=== PATIENT | male | born 1970 | race Caucasian/White ===

== ENCOUNTER → 2017-12-03 | Outpatient (CLI) | payer OTHER ==
[~2017-12-03] MED LIST: BACL10TA PO; CITA40TA12 PO; CYM/30 PO; DIAZ-165 PO; HYDR-4079 PO; HYDR50CA2 PO; MAGNESIUM PO; OXYC-106 PO; PROP20TA67 PO; VERA120T15 PO
[2017-12-03 13:56] LABS: BASO % 0.9 %; BASO ABS # 0.09 K/uL (0-0.2); EOS % 3.1 %; HEMATOCRIT 46.8 % (42-52); HEMOGLOBIN 16.4 g/dL (14.0-18.0); IG# 0.04 K/uL (0.00-0.02); LYMPH % 27.3 %; LYMPH ABS # 2.62 K/uL (1.2-3.4); MEAN CORPUSCULAR HEMOGLOBIN 30.1 pg (25-34); MEAN PLATELET VOLUME 10.1 fL (7.4-10.4); MONO ABS # 0.86 K/uL (0.11-0.59); NEUT % 59.3 %; NEUT ABS # 5.68 K/uL (1.4-6.5); PLATELET COUNT 341 K/uL (130-400); RED CELL DISTRIBUTION WIDTH CV 12.9 % (11.5-14.5); RED CELL DISTRIBUTION WIDTH SD 40.8 fL (36.4-46.3); WHITE BLOOD COUNT 9.59 K/uL (4.8-10.8)
== END | disposition home or self-care (01) ==
LOC: C.LABBC 11:48
PROVIDERS: ATTEND Orthopaedic Surgery Orthopaedic Surgery of the Spine
DX: Z01.812 Encounter for preprocedural laboratory examination (principal)

== ENCOUNTER 2017-12-15 05:23 | Observation (INO) | payer BC, OTHER ==
[2017-12-05 11:38] VITALS: BMI 32.0
--- NOTE | 2017-12-12 13:38 | HISTORY & PHYSICAL EXAMINATION ---
DATE OF ADMISSION: 12/15/2017 CHIEF COMPLAINT: Neck pain, arm pain, headaches, paresthesias, numbness and tingling. HISTORY OF PRESENT ILLNESS: He is 47 years of age and has ongoing problems for several months in duration and worsening over time. He had ____ surgery that was successful back in May, he underwent repair. He has gone on and done fairly well. More recently, he returned to heavy lifting, bending, stooping. I think he may have overdone things, just an estimate and possibly exceeding his lifting recommendations and may have reinjured his cervical spine. He also has degenerative changes at C3-C4 levels, C5-C6 and possibly even nonunion at the 4-5 level of the cervical spine. PAST MEDICAL HISTORY: Neck problems, upper back problems, hypertension, anxiety. PAST SURGICAL HISTORY: Shoulder surgery x2, C-spine surgery, appendectomy, AC separation. ALLERGIES: Negative. MEDICATIONS: Propranolol, Percocet, Cymbalta, and diazepam, citalopram. SOCIAL HISTORY: Nonsmoker, non ETOH user. ALLERGIES: Negative. Denies any blurred vision, double vision. Does have tenderness. Does have headaches. Does have some eye pain. Denies chest pain, angina. Denies asthma, wheezing, shortness of breath. No nausea, vomiting, urgency, frequency, dysuria. Mostly neck pain, arm pain, musculoskeletal arm difficulties, paresthesias, numbness, tingling. PHYSICAL EXAMINATION: GENERAL: He is alert, oriented. He is 6 foot. He is 200 pounds. VITAL SIGNS: Blood pressure 130/80, pulse of 80, respiration rate 16. HEAD, EYES, EARS, NOSE, AND THROAT: Pupils react to light and accommodation. Ear, nose and throat clear. CARDIAC: Normal S1, S2, no S3. LUNGS: Clear. ABDOMEN: Soft, nontender. NEUROLOGIC: He has a positive Spurling maneuver with rotate and side bending. He has Lhermitte sign with signs of cord compression. He has numbness and tingling. He has weakness of operator, weakness of the biceps function. 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 DISPOSITION: Includes an anterior cervical discectomy and fusion, C3-C4 and C5-C6 cervical spine, revision C4-5 cervical spine with iliac crest bone graft.
[2017-12-15] VITALS (14 sets, daily range): BP systolic 142–171; BP diastolic 89–119; PULSE 67–96; TEMP 36.4–36.8; O2SAT 95–98; Ht 180.3 cm; Wt 104.1 kg
[~2017-12-15] VITALS: Ht 180.3 cm; Wt 104.1 kg
[~2017-12-15 05:23] MED LIST changes: -BACL10TA PO; -HYDR-4079 PO; -VERA120T15 PO
[2017-12-15] MEDS ORDERED: LACTATED RINGER'S 1000ML 1,000 ML IV SCH (06:00)
[2017-12-15] MEDS ORDERED: NSS 1000ML IV SCH (06:00)
[2017-12-15] MEDS ORDERED: CEFAZOLIN 2000MG IV PUSH 10 ML IV SCH (06:00)
[2017-12-15] MEDS ORDERED: THROMBIN FOR SOLN 20000 UNIT KIT ONE (06:54)
[2017-12-15] MEDS ORDERED: GELATIN SPONGE SZ 100 ONE (06:54)
[2017-12-15] MEDS ORDERED: BUPIVACAINE/EPINEPHRINE 0.5% MPF 1:200,000 30 ML VIAL ONE ×2 (06:55→10:59)
[2017-12-15] MEDS ORDERED: BACITRACIN 50000 UNIT VIAL ONE (06:55)
[2017-12-15] MEDS ORDERED: MIDAZOLAM HCL 1 MG/ML 2ML VIAL ONE (07:10)
[2017-12-15] MEDS ORDERED: FENTANYL CITRATE INJ 50 MCG/1 ML 2 ML VIAL ONE ×2 (07:10→08:10)
[2017-12-15] MEDS ORDERED: ONDANSETRON INJ 2 MG/ML 2 ML VIAL IV PRN ×2 (07:15→11:15)
[2017-12-15] MEDS ORDERED: LABETALOL HCL IV 5 MG/ML 20ML IV PRN (07:15)
[2017-12-15] MEDS ORDERED: PROMETHAZINE HCL INJ 12.5 MG in SODIUM CHLORIDE 0.9% 50ML 50 ML IV PRN (07:15)
[2017-12-15] MEDS ORDERED: PHENYLEPHRINE 100MCG/ML 5ML SYR IV PRN (07:15)
[2017-12-15] MEDS ORDERED: ATROPINE SULFATE 0.1 MG/ML 5ML SYR IV PRN (07:15)
[2017-12-15] MEDS ORDERED: EpHEDrine SULFATE INJ 50 MG/ML AMP IV PRN (07:15)
--- NOTE | 2017-12-15 07:23 | History & Physical Bridge Note ---
H&P Re-Evaluation Bridge Note: I have examined the patient, reviewed the History & Physical and in the interval since the performance of the History & Physical I have noted the following changes of clinical significance: No changes noted
[2017-12-15] MEDS ORDERED: ACETAMINOPHEN 1000 MG/100 ML IV IV SCH (07:30)
[2017-12-15] MEDS ORDERED: HYDROmorphone INJ 2 MG/ML SYR/VIAL ONE (08:21)
[2017-12-15] MEDS ORDERED: NEOSTIGMINE METHYLSULFATE 5 MG/5 ML SYR ONE (08:24)
[2017-12-15] MEDS ORDERED: GLYCOPYRROLATE INJ 0.2 MG/ML VIAL ONE (08:24)
[2017-12-15] MEDS ORDERED: KETOROLAC TROMETHAMINE 30 MG/ML VIAL ONE (08:24)
[2017-12-15] MEDS ORDERED: DEXAMETHASONE SOD INJ 4 MG/ML VIAL ONE (08:24)
[2017-12-15] MEDS ORDERED: LABETALOL HCL IV 5 MG/ML 20ML IV ONE (08:24)
[2017-12-15] MEDS ORDERED: PROPOFOL IV EMULSION 10 MG/ML 20 ML VIAL IV ONE (08:24)
[2017-12-15] MEDS ORDERED: LIDOCAINE HCL 2% 2 ML VIAL (20MG/ML) ONE (08:24)
[2017-12-15] MEDS ORDERED: ROCURONIUM BROMIDE 10 MG/ML 5 ML VIAL IV ONE ×2 (08:24→12:40)
[2017-12-15] MEDS ORDERED: ONDANSETRON INJ 2 MG/ML 2 ML VIAL ONE (08:24)
[2017-12-15] MEDS ORDERED: LARYING-O-JET KIT (LTA) ONE (08:24)
[2017-12-15] MEDS ORDERED: HydrALAZINE HCL 20 MG/ML VIAL ONE (08:30)
--- NOTE | 2017-12-15 10:57 | DIAGNOSTIC IMAGING REPORT ---
INTRAOPERATIVE RADIOGRAPH CLINICAL HISTORY: Cervical spinal fusion. Fluoroscopy time: 5 seconds. FINDINGS: A single spot fluoroscopic image of the cervical spine is presented. There is evidence of discectomy at C3-C4 with anterior fusion at this level. Multilevel spinal fusion is seen in the lower cervical region. This extends from at least C4-C6. IMPRESSION: Intraoperative image from a cervical spinal fusion procedure as above. See operative report for detailed findings. Electronically signed by: Kush Pereyra M.D. 12/15/2017 10:56 AM Dictated Date/Time: 12/15/2017 10:55 AM
[2017-12-15] MEDS: SODIUM CHLORIDE 0.9% 1000ML 1,000 ML IV SCH ×2 (11:13→23:27)
[2017-12-15] MEDS ORDERED: DEXAMETHASONE INJ 8 MG in SYRINGE 0 ML IV PRN (11:15)
[2017-12-15] MEDS ORDERED: NALOXONE HCL 0.4 MG/1 ML VIAL/CARP IV PRN (11:15)
[2017-12-15] MEDS ORDERED: MAGNESIUM HYDROXIDE SUSP 30 ML UDC PO PRN (11:15)
[2017-12-15] MEDS ORDERED: ACETAMINOPHEN IV 1,000 MG in EMPTY BAG 0 ML IV PRN (11:15)
[2017-12-15] MEDS ORDERED: LORAZEPAM INJ 0.5 MG in SYRINGE 0.75 ML IV PRN (11:15)
[2017-12-15] MEDS ORDERED: RACEPINEPHRINE 2.25% NEBU SOLN 0.5 ML VIAL INH PRN (11:15)
[2017-12-15] MEDS ORDERED: LORAZEPAM 0.5 MG TAB PO PRN (11:15)
--- NOTE | 2017-12-15 11:15 | [facility] Post Operative Brief Note ---
Immediate Operative Summary Operative Date Dec 15, 2017. Pre-Operative Diagnosis Degenerative changes C3-C4 and C5-C6, Previous Fusion C4-C5 Post-Operative Diagnosis Degenerative changes C3-C4 and C5-C6, Previous Fusion C4-C5 Procedure(s) Performed Anterior Cervical Discectomy and Fusion C3-C4, C5-C6, Revision C4-C5 with Right Iliac Crest Bone Graft Surgeon Dr. Saha Php Architect Surgeon(s) EDIE Eng Estimated Blood Loss 50 ml Findings Consistent with Post-Op Diagnosis Specimens A. Removed Hardware C4-C5 Drains None Anesthesia Type General Disposition Disposition: Recovery Room / PACU
[2017-12-15] MEDS: FENTANYL CITRATE INJ 50 MCG/1 ML 2 ML VIAL IV PRN ×4 (11:18→11:34)
[2017-12-15] MEDS: HYDROmorphone INJ 1 MG/ML SYR IV PRN ×4 (11:38→11:55)
--- NOTE | 2017-12-15 12:14 | OPERATIVE REPORT ---
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 POSTOPERATIVE DIAGNOSIS: Same. PROCEDURES: Include: 1. Anterior cervical discectomy and fusion C3-C4 and C5-C6 cervical spine. 2. Anterior cervical discectomy and decompression of a nonunion at C4-C5 cervical spine. 3. Anterior plating of C4-C5-C6 cervical spine. 4. Right iliac crest bone graft. SURGEON: Dr. Saha. CREATIVE WRITING ENGLISH PROFESSOR: Juliano Londono PA-C. DESCRIPTION OF PROCEDURE: The patient was taken to the operating room and general intubated anesthetic provided to the patient. Antibiotics delivered. Solitario catheter administered. He was shaved, scrubbed, prepped and draped sterile. We made a left anterior approach similar to his prior surgery dissecting the soft tissue on the same plane down on the anterior aspect of the spinal vertebral column. We meticulously exposed the area of C3 down to C6 of the cervical spine region. We then did formal discectomies at the C5-C6 region, the C3-C4 region. We got back to the spinal canal, we decompressed every particle of disk that I could see. Revision was good. We then did a revision at the C4-C5 level of the cervical spine, decompression of the nerve roots, taking out bone, using a amanda, I got back through the osteophyte, I got through the posterior longitudinal ligament and every area was decompressed appropriately in my opinion. We then went to the right iliac crest. I did a skin incision, fascial incision, we were able to harvest iliac crest bone graft. I felt the lowest 2 levels, I did iliac crest bone with an anterior plate. Up at the higher level, we did a coalition device at C3-C4 region of the cervical spine. I was pleased with the result fixation positioning. We irrigated and closed in layers on the iliac crest with #1 Vicryl suture, 2-0 in the subcuticular layer, and 3-0 nylon on the skin. The cervical spine was closed in sequential manner as well. Sterile dressings applied. Cervical collar applied. The patient extubated to PACU stable. Sponge and needle count correct. COMPLICATIONS: No apparent complications. BLOOD LOSS: 50 mL. I attest to the content of the Intraoperative Record and any orders documented therein. Any exception s are noted below.
--- NOTE | 2017-12-15 12:37 | Anesthesiology Progress Note ---
Anesthesia Post Op Note Date & Time Dec 15, 2017 at 12:37 Vital Signs Pain Intensity: 0 Vital Signs Past 12 Hours Date Time Temp Pulse Resp B/P (MAP) Pulse Ox O2 Delivery O2 Flow Rate FiO2 12/15/17 12:25 36.6 94 22 141/83 92 Room Air 12/15/17 12:15 96 22 141/83 95 Room Air 12/15/17 12:05 96 14 127/74 96 Room Air 12/15/17 11:55 85 13 145/89 96 Nasal Cannula 4 12/15/17 11:45 89 18 97 12/15/17 11:45 89 18 12/15/17 11:41 149/87 12/15/17 11:40 87 12 96 12/15/17 11:40 87 12 12/15/17 11:36 148/93 12/15/17 11:35 93 21 12/15/17 11:35 93 21 95 12/15/17 11:33 149/94 12/15/17 11:31 139/125 12/15/17 11:30 94 27 96 12/15/17 11:30 92 27 12/15/17 11:26 154/84 12/15/17 11:25 90 27 12/15/17 11:25 89 27 98 12/15/17 11:21 147/100 12/15/17 11:20 85 20 12/15/17 11:20 85 20 97 12/15/17 11:15 96 18 12/15/17 11:15 36.4 94 16 145/90 94 Oxymask 10 12/15/17 11:15 97 18 145/90 96 12/15/17 05:42 36.7 67 20 171/109 (129) 98 Room Air Notes Mental Status: alert / awake / arousable, participated in evaluation Pt Amnestic to Procedure: Yes Nausea / Vomiting: adequately controlled Pain: adequately controlled Airway Patency, RR, SpO2: stable & adequate BP & HR: stable & adequate Hydration State: stable & adequate Anesthetic Complications: no major complications apparent
[2017-12-15] MEDS ORDERED: ACETAMINOPHEN IV 1000MG/100ML IV PRN (13:45)
[2017-12-15] MEDS: HYDROmorphone INJ 0.5 MG/0.5 ML SYR IV PRN ×4 (13:46→23:27)
[2017-12-15] MEDS: PROPRANOLOL HCL 20 MG TAB PO SCH ×2 (14:00→20:18)
[2017-12-15] MEDS ORDERED: IV FLUIDS COMPLETED PRN (15:45)
[2017-12-15] MEDS ORDERED: NURSING VERBAL MED ORDER ONE (15:45)
[2017-12-15] MEDS: OXYCODONE/ACETAMINOPHEN 10/325MG TAB PO PRN ×2 (16:21→22:33)
[2017-12-15] MEDS: CEFAZOLIN IV 1,000 MG in SYRINGE 0 ML IV SCH ×2 (16:32→23:24)
[2017-12-15] MEDS: DEXAMETHASONE INJ 6 MG in SYRINGE 0 ML IV SCH ×2 (16:32→23:25)
[2017-12-15] MEDS: MAGNESIUM OXIDE 400 MG TAB PO SCH (20:18)
[2017-12-15] MEDS: DOCUSATE SODIUM 100 MG CAP PO SCH (20:19)
[2017-12-15] MEDS: hydrOXYzine HCL 25 MG TAB PO SCH (20:20)
[2017-12-16] VITALS (19 sets, daily range): BP systolic 143–193; BP diastolic 84–111; PULSE 64–94; TEMP 36.6–37; O2SAT 93–98
[2017-12-16] MEDS: HYDROmorphone INJ 0.5 MG/0.5 ML SYR IV PRN ×6 (03:11→22:20)
[2017-12-16] MEDS: OXYCODONE/ACETAMINOPHEN 10/325MG TAB PO PRN ×3 (05:29→20:11)
--- NOTE | 2017-12-16 07:39 | Anesthesiology Progress Note ---
Anesthesia Post Op Note Date & Time Dec 16, 2017 at 07:39 Vital Signs Pain Intensity: 6.0 Vital Signs Past 12 Hours Date Time Temp Pulse Resp B/P (MAP) Pulse Ox O2 Delivery O2 Flow Rate FiO2 12/16/17 07:21 16 95 Room Air 12/16/17 03:29 94 18 97 Nasal Cannula 2.0 12/16/17 03:15 36.7 90 18 161/93 (115) 96 Nasal Cannula 2.0 12/16/17 01:15 36.7 91 18 143/84 (103) 96 Nasal Cannula 2.0 12/15/17 23:15 36.5 92 20 151/90 97 Nasal Cannula 2.0 Humidified Oxygen 12/15/17 23:09 83 18 96 Nasal Cannula 2.0 12/15/17 21:15 36.5 91 18 159/94 97 Nasal Cannula 2.0 Humidified Oxygen 12/15/17 20:34 85 18 96 Nasal Cannula 2.0 12/15/17 20:17 83 165/112 (129) Notes Mental Status: alert / awake / arousable, participated in evaluation Pt Amnestic to Procedure: Yes Nausea / Vomiting: adequately controlled Pain: adequately controlled Airway Patency, RR, SpO2: stable & adequate BP & HR: stable & adequate Hydration State: stable & adequate Anesthetic Complications: no major complications apparent
[2017-12-16] MEDS: DEXAMETHASONE INJ 6 MG in SYRINGE 0 ML IV SCH (08:10)
[2017-12-16] MEDS: CEFAZOLIN IV 1,000 MG in SYRINGE 0 ML IV SCH (08:16)
--- NOTE | 2017-12-16 09:00 | ORTHOPEDICS PROGRESS NOTE ---
DATE: 12/16/2017 SUBJECTIVE: He is alert, oriented, no chest pain, shortness of breath, confusion. OBJECTIVE: Vital signs stable. Alert, oriented. ASSESSMENT: Status post reconstructive cervical spine surgery, multiple levels, iliac crest bone graft. DISPOSITION: He is doing appropriately in the short run. It is too early for him to be discharged home. He was given instruction precautions. Will round on him tomorrow, hopefully tentative discharge home tomorrow the .
[2017-12-16] MEDS: DOCUSATE SODIUM 100 MG CAP PO SCH ×2 (09:40→21:21)
[2017-12-16] MEDS: PROPRANOLOL HCL 20 MG TAB PO SCH ×3 (09:40→21:21)
[2017-12-16] MEDS: MAGNESIUM OXIDE 400 MG TAB PO SCH ×2 (09:40→21:20)
[2017-12-16] MEDS: DULOXETINE (CYMBALTA) 30 MG CAP PO SCH (09:40)
[2017-12-16] MEDS ORDERED: OXYC-106 PO (10:24)
--- NOTE | 2017-12-16 10:25 | Discharge Instructions ---
Discharge Instructions Date of Service Dec 16, 2017. Admission Reason for Admission: Cord Compression, Nonunion Discharge Discharge Diagnosis / Problem: same Discharge Goals Goal(s): Improve function Activity Recommendations Activity Limitations: as noted below Lifting Limitations: gradually increase as tolerated Exercise/Sports Limitations: until after follow-up appointment May Resume Sexual Activity: after follow-up appointment Shower/Bathe: keep incision dry . Instructions / Follow-Up Instructions / Follow-Up MEDICATIONS: Please take your prescriptions as instructed at your pre-op appointment. SPECIAL CARE: The following information is intended to answer some of the common questions and concerns regarding your surgery. Each patient is an individual and receives individual counselling throughout the course of treatment, from diagnosis to surgery all the way through recovery. What follows is not an exhaustive list, but should be a useful guide to some of the common questions and concerns patients have regarding their surgeries. These are not provided to keep you from calling us; rather, they give you something accurate and concrete to reference as you recover from your procedure. If you need us, we are available to you. As always, if you are not sure about something, call us at [phone]. MEDICAL EMERGENCIES: For these conditions, call 911 or go to your local hospital-based Emergency Department - not [facility] or equivalent. * Paralysis * Severe chest pain or difficulty breathing * Swelling or redness of either leg Spine procedures can be rather complex and though complications are rare, they do occur. In such cases, effective advice regarding emergency situations cannot always be addressed over the telephone. You may be referred to the emergency department for more effective management of your problem. Activity Limitations: It is important to give your body time to heal, so please limit your activities : * In general, don't do anything that moves your spine too much. You should avoid contact sports, twisting or heavy lifting while you recover. * 5-10 pounds is all you should attempt to lift. * You should not plan on driving for approximately 3 weeks and you should avoid traveling more than 30-45 minutes at a time. Longer trips should be broken down with walking breaks spaced appropriately. * Physical therapy is not usually required. * Walking and good posture practices will help you recover and regain your function. * Avoid straining or sudden changes in position. * In general, the goal is to take it easy and recover. Don't cause any new problems. Just relax. Showers: * Do not take a bath, use a Jacuzzi or hot tub or otherwise submerge your incision. * It is usually safe to take a shower 4-5 days after your surgery. * Your incision does not require any special creams or ointments. * Simply clean it with soap and water, dry and re-dress with a clean bandage afterwards. Incision: * Keep incision clean, dry and protected until your first follow-up appointment. * Some amount of drainage and redness is normal. Any drainage should be fairly clear and not have a foul odor. * If you feel anything is wrong or you have excessive drainage, please call us. * Your stitches and osmin will be removed 10-14 days after your surgery. At the time of your first post-op visit. * Neck surgeries are typically closed with a suture underneath the skin. The steri-strips over the incision should be maintained until we see you in the office. Bracing: * You may be provided with a back or neck brace to encourage good posture and prevent injury. It will remind you not to do too much as you heal and will alert others to the fact that you have had a surgery. * Back braces may be removed for showers and when you are resting at home. They must be worn when you are walking around for any period of time or for travel. * For neck surgery, you will likely be provided with two cervical collars. The soft collar (Prospect or foam rubber) is worn most commonly throughout the day and while sleeping. The plastic collar (provided at the hospital) is for showering/bathing. * Except while eating, collars should remain in place. More specifically, bracing is provided for a purpose and should be worn. * Please obtain your brace or collars prior to your operation and bring them to the hospital with you on the day of surgery. * You should also bring your collars to your post-op appointment with Dr. Saha. You should always take good care of your body and practice healthy habits, especially following surgery. You should: * Follow your doctor's treatment plan * Sit and stand properly with good posture (ears over shoulders, shoulders over hips) Don't slouch * Learn to lift correctly * Exercise regularly (low-impact aerobic exercise is especially good, but check with your doctor first) * Generally, be up and walking for 5-10 minutes at a time at least 3-4 times per day from the day you get home * Increasing walking to tolerance until you can walk for 20-30 minutes at a time * Attain and maintain a healthy body weight * Eat healthy foods ( a well-balanced, low-fat diet rich in fruits and vegetables) and get enough calcium * Avoid excessive use of alcohol When to call our office - If you notice any of the following: * Increased pain not relieve by pain medicine * Fevers greater then 100 degrees F, chills or flu symptoms * Increased redness around incision * Drainage from the incision that is not clear * Any foul smelling drainage * Swelling or fluid collection beneath the skin Miscellaneous: * In the hospital, you may be given a walker or cane for support while walking. These are temporary needs and are intended to prevent injuries due to falls. You may discontinue them when you feel strong and steady enough on your feet. * Sleep in a comfortable position. We find that many patients find a lounge chair or recliner with several pillows to be beneficial in the early post-operative period. * The support stockings should be used for 7-10 days and may be discontinued when you are back to walking more and conducting usual household activities. No problem is insignificant. We are here to help you and get you well. Contact us at [phone]. Definitions: Foraminotomy: If part of the disc or a bone spur (osteophyte) is pressing on a nerve as it leaves the vertebra (through an exit called the foramen), a foraminotomy may be done. Otomy means "to make an opening." A foraminotomy is making the opening of the foramen larger, so the nerve can exit without being compressed. Laminotomy: Similar to the foraminotomy, a laminotomy makes a larger opening, this time in your bony plate protecting your spinal canal and spinal cord (the lamina). The lamina may be pressing on your nerve, so the surgeon may make more room for the nerves using a laminotomy. Laminectomy: Sometimes, a laminotomy is not sufficient. The surgeon may need to remove all or part of the lamina. This procedure is called a laminectomy. This can often be done at many levels without any harmful effects. Current Hospital Diet Patient's current hospital diet: Clear Liquid Diet Discharge Diet Recommended Diet: Regular Diet Procedures Procedures Performed: Anterior Cervical Discectomy and Fusion C3-C4, C5-C6, Revision C4-C5 with Right Iliac Crest Bone Graft Pending Studies Studies pending at discharge: no Medical Emergencies . Who to Call and When: Medical Emergencies: If at any time you feel your situation is an emergency, please call 911 immediately. . Non-Emergent Contact Non-Emergency issues call your: Primary Care Provider . "Provider Documentation" section prepared by Mayo Saha. . VTE Core Measure Inpt VTE Proph given/why not?: Treatment not indicated
[2017-12-16] MEDS: hydrOXYzine HCL 25 MG TAB PO SCH (21:21)
[2017-12-17] VITALS: BP 193/111
[2017-12-17] MEDS ORDERED: HydrALAZINE HCL 20 MG/ML VIAL IV. PRN (00:45)
[2017-12-17 02:14] VITALS: BP 162/95
[2017-12-17] MEDS: OXYCODONE/ACETAMINOPHEN 10/325MG TAB PO PRN ×3 (03:08→08:58)
[2017-12-17 03:39] VITALS: PULSE 83; O2SAT 96
[2017-12-17 03:55] VITALS: BP 155/93; PULSE 63; TEMP 36.7; O2SAT 93
--- NOTE | 2017-12-17 04:19 | Medical Consult ---
Consultation Date of Consultation: Dec 17, 2017. Attending Physician: Mayo Saha DO Reason for Consultation: htn History of Present Illness This is a 47 yo m s/p c4-c5 fusion revision and ant cervical discectomy and fusion of c3-c4 POD2 that is suffering from elevated bp. The patient does have a history of HTN and is taking propranolol for this. He has had relatively well controlled bp considering his recent surgery and pain control however he had persistently elevated systolic bp > 190 overnight and consult for hospitalist was ordered. EKG was obtained and no ischemic changes were noted and patient NSR ; the quality was poor due to the patient's tremor. The patient received hydralazine 10 mg IV which improved the pressure. Patient was completely symptomatic with his elevated bp. Past Medical/Surgical History HTN Mood disorder Family History FH: CAD (coronary artery disease) Social History Smoking Status: Never Smoker Smokeless Tobacco Use: No Alcohol Use: socially Drug Use: none Occupation Status: employed Allergies Coded Allergies: No Known Allergies (Unverified , 12/15/17) Current Inpatient Medications Current Inpatient Medications Medications (Trade) Dose Ordered Sig/Arpita Route Start Time Stop Time Status Last Admin Dose Admin Racepinephrine (Raccemic Epinephrine 2.25% 0.5ML Neb) 0.5 ml ONE PRN INH 12/15/17 11:15 Hydromorphone HCl (Dilaudid Inj) 0.5mg IV for moder... Q3H PRN IV 12/15/17 11:15 12/29/17 11:14 12/16/17 22:20 1 MG Magnesium Hydroxide (Milk Of Magnesia Susp) 30 ml DAILY PRN PO 12/15/17 11:15 01/14/18 11:14 Docusate Sodium (coLACE CAP) 100 mg BID PO 12/15/17 21:00 01/14/18 20:59 12/16/17 21:21 100 MG Ondansetron HCl (Zofran Inj) 4 mg Q6H PRN IV 12/15/17 11:15 01/14/18 11:14 Lorazepam (Ativan Tab) 0.5 mg Q8H PRN PO 12/15/17 11:15 01/14/18 11:14 Lorazepam 0.5 mg/ Syringe 1 ml @ 1 mls/min Q8H PRN IV 12/15/17 11:15 01/14/18 11:14 Bisacodyl (Dulcolax Tab) 5 mg DAILY PRN PO 12/17/17 06:00 01/16/18 05:59 Bisacodyl (Dulcolax Supp) 10 mg DAILY PRN [place] 12/17/17 06:00 01/16/18 05:59 Dexamethasone Sodium Phosphate 8 mg/Syringe 2 ml @ 1 mls/min ONE PRN IV 12/15/17 11:15 Naloxone HCl (Narcan Inj) 0.1 mg Q5M PRN IV 12/15/17 11:15 01/14/18 11:14 Duloxetine HCl (Cymbalta Cap) 60 mg QAM PO 12/16/17 09:00 01/15/18 08:59 12/16/17 09:40 60 MG Propranolol HCl (Inderal Tab) 20 mg TID PO 12/15/17 14:00 01/14/18 13:59 12/16/17 21:21 20 MG Hydroxyzine HCl (Vistaril Tab) 50 mg HS PO 12/15/17 21:00 01/14/18 20:59 12/16/17 21:21 50 MG Magnesium Oxide (Mag-Ox Tab) 400 mg BID PO 12/15/17 21:00 01/14/18 20:59 12/16/17 21:20 400 MG Acetaminophen 100 ml @ 400 mls/hr Q8H PRN IV 12/15/17 13:45 01/14/18 13:44 Oxycodone/ Acetaminophen (Percocet 10-325MG Tab) `1-2 tabs for pain 1 tab ... Q6H PRN PO 12/15/17 15:45 12/29/17 15:44 12/17/17 03:08 1 TAB Miscellaneous (Iv Fluids Completed) 1 ea PRN PRN N/A 12/15/17 15:45 12/15/18 15:44 Hydralazine HCl (HydrALAZINE INJ) 10 mg Q4H PRN IV. 12/17/17 00:45 01/16/18 00:44 12/17/17 00:40 10 MG Review of Systems Constitutional: No fever, No chills, No sweats Eyes: No worsening of vision ENT: No hearing loss Respiratory: No cough, No sputum, No wheezing, No shortness of breath, No dyspnea on exertion, No dyspnea at rest Cardiovascular: No chest pain, No palpitations Abdomen: No pain, No nausea, No vomiting, No diarrhea, No constipation Musculoskeletal: + joint pain (appropriate post op pain, deemed well controlled by patient) Genitourinary - Male: No hematuria, No dysuria Neurologic: No weakness, No numbness/tingling, No balance problems Psychiatric: No depression symptoms Endocrine: No fatigue Hematologic / Lymphatic: No abnormal bleeding/bruising Integumentary: No rash Physical Exam Date Time Temp Pulse Resp B/P (MAP) Pulse Ox O2 Delivery O2 Flow Rate FiO2 12/17/17 03:55 36.7 63 16 155/93 93 Room Air 12/17/17 03:39 83 16 96 Room Air 12/17/17 02:14 162/95 (117) 12/17/17 00:00 193/111 (138) 12/16/17 23:50 36.7 77 18 193/111 (102) 93 Room Air 2.0 12/16/17 23:50 Room Air 12/16/17 23:30 36.7 77 18 187/103 (131) 93 Room Air 12/16/17 23:20 85 16 96 Room Air 12/16/17 20:35 83 16 97 Room Air 12/16/17 20:05 36.8 64 16 165/94 97 Room Air 12/16/17 15:53 80 16 97 Room Air 12/16/17 15:40 37.0 80 16 160/91 (102) 97 Room Air 2.0 68 12/16/17 15:40 Room Air 12/16/17 15:02 37.0 68 18 160/91 (114) 94 Room Air 12/16/17 12:00 36.6 83 16 166/84 (111) 95 Room Air 12/16/17 11:48 84 16 96 Room Air 12/16/17 11:30 85 18 95 Room Air 12/16/17 10:45 92 96 12/16/17 09:30 85 20 173/95 95 Room Air 12/16/17 08:55 Room Air 12/16/17 07:40 93 18 98 Room Air 12/16/17 07:28 36.7 85 20 166/87 (113) 94 Room Air 12/16/17 07:21 16 95 Room Air General Appearance: no apparent distress, + pertinent finding (C spine in place ) Head: normocephalic, atraumatic Eyes: normal inspection ENT: normal ENT inspection, + pertinent finding (unable to fully open mouth because of c spine) Neck: + pertinent finding (unable to appropriately assess because of C spine ) Respiratory/Chest: normal breath sounds, no respiratory distress, no accessory muscle use Cardiovascular: regular rate, rhythm, no murmur, normal peripheral pulses Abdomen/GI: normal bowel sounds, non tender, soft Back: + pertinent finding (no assessed) Extremities/Musculoskelatal: normal inspection, no calf tenderness, normal range of motion Neurologic/Psych: alert, normal mood/affect, oriented x 3 Skin: normal color, warm/dry, no rash, + pertinent finding (dressings were clean, without drainage) Lymphatic: no adenopathy Assessment & Plan This is a 47 yo m POD2 s/p fusion and revision of cervical spine suffering from elevated bp HTN , most likely situational/ secondary to pain - Hydralazine 10 mg IV prn - repeat EKG in am - continue PO propranolol 20 mg tid - will defer changing home regimen at this time Mood disorder - agree continue duloxetine s/p fusion/ revision of cervical spine - pain control and mx per primary team DVT Prophylaxis - per primary team Attending addendum: I have physically seen this patient, have supervised the medical residents activities, and agree with the H&P unless as otherwise noted. Assessment and Plan: Increased blood pressure/history of hypertension/status post fusion and revision of cervical spine with pain level improved to 4/10. Continue to work on improved pain control Continue propranolol 20 mg by mouth 3 times a day Hydralazine 10 mg IV every 4 hours when necessary systolic blood pressure greater than 160 Additional Copies To Alli Reyes M.D.
[2017-12-17] MEDS ORDERED: BISACODYL 10 MG SUPP PR PRN (06:00)
[2017-12-17] MEDS ORDERED: BISACODYL 5 MG TABEC PO PRN (06:00)
[2017-12-17 08:00] VITALS: BP 153/84; PULSE 79; TEMP 36.9; O2SAT 96
[2017-12-17] MEDS: DOCUSATE SODIUM 100 MG CAP PO SCH (08:16)
[2017-12-17] MEDS: PROPRANOLOL HCL 20 MG TAB PO SCH (08:16)
[2017-12-17] MEDS: DULOXETINE (CYMBALTA) 30 MG CAP PO SCH (08:16)
[2017-12-17] MEDS: MAGNESIUM OXIDE 400 MG TAB PO SCH (08:16)
[2017-12-17 08:52] VITALS: BP 153/84; PULSE 79; TEMP 36.9; O2SAT 96
== END 2017-12-17 09:40 | disposition home or self-care (01) ==
LOC: C.ACU 05:23 → C.3E 11:16 → ENRESERV 12:13
PROVIDERS: ADMIT Orthopaedic Surgery Orthopaedic Surgery of the Spine; ATTEND Orthopaedic Surgery Orthopaedic Surgery of the Spine
DX: G95.29 Other cord compression (principal); M96.0 Pseudarthrosis after fusion or arthrodesis; I10 Essential (primary) hypertension; F39 Unspecified mood [affective] disorder; F41.9 Anxiety disorder, unspecified; Z79.899 Other long term (current) drug therapy; Z82.49 Family history of ischemic heart disease and other diseases of the circulatory system